=== PATIENT | female | born 1975 ===

== ENCOUNTER → 2020-10-18 | Outpatient (CLI) | payer OTHER ==
--- NOTE | 2020-10-18 15:07 | Diagnostic Imaging Report ---
PROCEDURE: CT lumbar spine without contrast. TECHNIQUE: Multiple contiguous axial images were obtained through the lumbar spine without the use of intravenous contrast. Sagittal and coronal reformations were then performed. Auto Exposure Controls were utilized during the CT exam to meet ALARA standards for radiation dose reduction. INDICATION: Fall and low back pain. COMPARISON: No prior study is available for comparison. FINDINGS: Curvature of the lumbar spine is normal. There is grade 1 spondylolisthesis of L5 on S1. Patient does have bilateral pars defects at this level. Alignment of the remainder of the lumbar spine is normal. Vertebral body heights are well maintained. No acute compression fracture is seen. There is some degenerative disc disease at L5-S1 with disc space narrowing present. There is bilateral neural foraminal stenosis at L5-S1 due to spondylolisthesis. Paraspinous tissues are unremarkable. IMPRESSION: Grade 1 spondylolisthesis of L5 on S1 with associated bilateral pars defects and degenerative change. There is resultant bilateral neural foraminal stenosis at this level. No acute bony abnormality is detected. Dictated by: Dictated on workstation # [id number]
--- NOTE | 2020-10-18 15:08 | Diagnostic Imaging Report ---
PROCEDURE: CT cervical spine without contrast. TECHNIQUE: Multiple contiguous axial images were obtained through the cervical spine without the use of intravenous contrast. Sagittal and coronal reformations were then performed. Auto Exposure Controls were utilized during the CT exam to meet ALARA standards for radiation dose reduction. INDICATION: Trauma. Right-sided neck pain. Swelling on plain films. COMPARISON: None available. FINDINGS: Normal alignment. Vertebral body heights are preserved. No fractures. No substantial spondylotic change. No evidence of neural impingement on soft tissue windows. Visualized paravertebral soft tissues are negative. Lung apices are clear. IMPRESSION: Negative cervical spine CT. Dictated by: Dictated on workstation # [id number]
== END ==
LOC: RAD 13:43
PROVIDERS: ATTEND Family Medicine
DX: M51.37 Other intervertebral disc degeneration, lumbosacral region (principal); M43.17 Spondylolisthesis, lumbosacral region; M48.07 Spinal stenosis, lumbosacral region
CPT/HCPCS: 72125; 72131